=== PATIENT | male | born 1940 | race Caucasian/White ===

== ENCOUNTER → 2016-08-12 | Outpatient (CLI) | payer MEDICARE ==
[~2016-08-12] MED LIST: ASPIRIN 32325 MG/TAB PO; CIPRO500 M1 PO; DAILY VALUE1 EACH PO; ED NORCO 56 UDTAB/BO PO; FINASTERIDE5 MG PO; FLAGYL500 M1 PO; FLECAINIDE ACET50 MG PO; GOOD SENSE ASPI81 M1 PO; NIACIN1000 MG PO; NIACIN500 MG PO; OMEGA-3 EC SOF1 EACH PO; OMNICEF 300MG300 MG PO; PROSCAR PO; SIMVASTATIN20 MG PO; SUPER B COMPLEX1 TA2 PO; SUPER B-50 COM1 EACH PO; TOPCARE ASPIRIN81 MG PO; TOPROL XL 50MG50 MG PO; XARELTO20 MG PO; ZITHROMAX500 M2 PO; ZOCOR20 M1 PO; [UNRECOGNIZED DRUG - OTHER] PO
[2016-08-12 11:55] VITALS: BP 156/90
== END ==
LOC: AMSURD 11:50
DX: R00.0 Tachycardia, unspecified (principal)

== ENCOUNTER → 2016-08-13 | Outpatient (CLI) | payer MEDICARE ==
[2016-08-12 11:55] VITALS: BP 156/90
== END ==
LOC: RAD 11:54 → LAB 11:54
DX: I48.91 Unspecified atrial fibrillation (principal); E78.2 Mixed hyperlipidemia; I48.1 Persistent atrial fibrillation

== ENCOUNTER → 2016-09-04 | Outpatient (CLI) | payer MEDICARE ==
[2016-08-12 11:55] VITALS: BP 156/90
== END ==
LOC: CARDREHAB 09:38
DX: I48.0 Paroxysmal atrial fibrillation (principal); R06.00 Dyspnea, unspecified
CPT/HCPCS: A9500

== ENCOUNTER 2016-10-02 00:29 | Emergency (ER) | payer MEDICARE ==
[~2016-10-02] VITALS: Ht 195.6 cm; Wt 100.0 kg
[~2016-10-02 00:29] MED LIST changes: -CIPRO500 M1 PO; -FLAGYL500 M1 PO; -FLECAINIDE ACET50 MG PO; -NIACIN1000 MG PO; -OMEGA-3 EC SOF1 EACH PO; -PROSCAR PO; -SUPER B-50 COM1 EACH PO; -TOPROL XL 50MG50 MG PO; -XARELTO20 MG PO; -ZOCOR20 M1 PO
[2016-10-02] MEDS ORDERED: PROSCAR PO (00:59)
[2016-10-02] MEDS ORDERED: OMEGA-3 EC SOF1 EACH PO (01:00)
[2016-10-02] MEDS ORDERED: TOPROL XL 50MG50 MG PO (01:03)
[2016-10-02] MEDS ORDERED: FLECAINIDE ACET50 MG PO (01:03)
[2016-10-02] MEDS ORDERED: ZOCOR20 M1 PO (01:03)
[2016-10-02] MEDS ORDERED: XARELTO20 MG PO (01:04)
[2016-10-02] MEDS ORDERED: NIACIN1000 MG PO (01:04)
[2016-10-02] MEDS ORDERED: SUPER B-50 COM1 EACH PO (01:05)
[2016-10-02] MEDS ORDERED: CIPRO500 M1 PO (02:52)
[2016-10-02] MEDS ORDERED: FLAGYL500 M1 PO (02:52)
[2016-10-02 03:28] VITALS: BP 140/64
== END 2016-10-02 03:28 | disposition home or self-care (01) ==
LOC: ED 00:29
DX: K57.92 Diverticulitis of intestine, part unspecified, without perforation or abscess without bleeding (principal); N40.0 Benign prostatic hyperplasia without lower urinary tract symptoms; I48.91 Unspecified atrial fibrillation; Z79.01 Long term (current) use of anticoagulants; I10 Essential (primary) hypertension
CPT/HCPCS: J2270; J2405; J7030; Q9967

== ENCOUNTER → 2016-10-13 | Outpatient (CLI) | payer MEDICARE ==
[2016-10-02 03:28] VITALS: BP 140/64
[~2016-10-13] MED LIST changes: +CIPRO500 M1 PO; +FLAGYL500 M1 PO; +FLECAINIDE ACET50 MG PO; +NIACIN1000 MG PO; +OMEGA-3 EC SOF1 EACH PO; +PROSCAR PO; +SUPER B-50 COM1 EACH PO; +TOPROL XL 50MG50 MG PO; +XARELTO20 MG PO; +ZOCOR20 M1 PO
== END ==
LOC: LAB 09:27
DX: Z12.5 Encounter for screening for malignant neoplasm of prostate (principal)

== ENCOUNTER → 2016-10-16 | Outpatient (CLI) | payer MEDICARE ==
[~2016-10-16] VITALS: Ht 193 cm; Wt 100.0 kg
[2016-10-16 08:55] VITALS: BP 132/71
== END ==
LOC: AMSURD 08:38
DX: I48.91 Unspecified atrial fibrillation (principal)

== ENCOUNTER → 2017-01-18 | Outpatient (CLI) | payer MEDICARE ==
[2016-10-16 08:55] VITALS: BP 132/71
== END ==
LOC: LAB 07:32
DX: N30.01 Acute cystitis with hematuria (principal)

== ENCOUNTER → 2017-08-20 | Outpatient (CLI) | payer MEDICARE ==
[~2017-08-20] VITALS: Ht 193 cm; Wt 108.6 kg
[2017-08-20 10:31] VITALS: BP 129/77
== END ==
LOC: AMSURD 10:17
DX: I48.0 Paroxysmal atrial fibrillation (principal)

== ENCOUNTER → 2017-12-03 | Outpatient (CLI) | payer MEDICARE ==
[2017-08-20 10:31] VITALS: BP 129/77
[2017-12-03 07:21] LABS: HEMATOCRIT 40.7 % (42.0-52.0); HEMOGLOBIN 13.8 g/dL (13.5-18.0); MEAN CELL VOLUME 93 fl (78-100); MEAN CORPUSCULAR HEMOGLOBIN 32 pg (27-31); MEAN CORPUSCULAR HGB CONC 34 g/dL (33-37); MEAN PLATELET VOLUME 9.5 fl (7.4-10.4); PLATELET COUNT 197 K/mm3 (130-400); RED BLOOD COUNT 4.36 M/mm3 (4.20-5.60); RED CELL DISTRIBUTION WIDTH 12.7 % (11.5-14.5); WHITE BLOOD COUNT 4.1 K/mm3 (4.8-10.8)
[2017-12-03 07:39] LABS: ALBUMIN 3.7 g/dL (3.5-5.0); CALCIUM 8.9 mg/dL (8.4-10.2); POTASSIUM 4.2 mmol/L (3.6-5.0); TOTAL BILIRUBIN 0.5 mg/dL (0.2-1.3); TOTAL PROTEIN 6.7 g/dL (6.3-8.2)
[2017-12-03 08:34] LABS: BAND 1 % (0-10); LYMPHOCYTE 48 % (20-51); MONOCYTE 9 % (3-10); NEUTROPHILS 38 % (42-75)
[2017-12-03 08:42] LABS: URINE COLOR YELLOW
[2017-12-03 08:43] LABS: URINE APPEARANCE CLEAR; URINE BILIRUBIN NEGATIVE (NEGATIVE); URINE BLOOD NEGATIVE (NEGATIVE); URINE GLUCOSE NEGATIVE (NEGATIVE); URINE KETONE NEGATIVE (NEGATIVE); URINE LEUKOCYTE ESTERASE NEGATIVE (NEGATIVE); URINE NITRATE NEGATIVE (NEGATIVE); URINE PROTEIN(semi-quant) NEGATIVE (NEGATIVE); URINE UROBILINOGEN NORMAL (NORMAL); URINE WBC 0-1 /hpf (0-3)
== END ==
LOC: LAB 07:02
PROVIDERS: Physician Assistant
DX: Z00.00 Encounter for general adult medical examination without abnormal findings (principal); E03.9 Hypothyroidism, unspecified; N40.0 Benign prostatic hyperplasia without lower urinary tract symptoms; E78.2 Mixed hyperlipidemia

== ENCOUNTER → 2018-02-11 | Outpatient (CLI) | payer MEDICARE ==
[2017-08-20 10:31] VITALS: BP 129/77
== END ==
LOC: LAB 15:16
DX: L72.3 Sebaceous cyst (principal); B99.9 Unspecified infectious disease

== ENCOUNTER → 2018-03-18 | Outpatient (CLI) | payer MEDICARE ==
[~2018-03-18] VITALS: Ht 195.6 cm; Wt 104.5 kg
[~2018-03-18] MED LIST changes: +MEGARED OMEGA-1 EAC1 PO
[2018-03-18 09:30] VITALS: BP 121/74
== END ==
LOC: AMSURD 09:53
DX: I48.0 Paroxysmal atrial fibrillation (principal)

== ENCOUNTER → 2019-01-26 | Outpatient (CLI) | payer MEDICARE ==
[~2019-01-26] VITALS: Ht 195.6 cm; Wt 104.5 kg
[2019-01-26 13:45] VITALS: BP 94/55
== END ==
LOC: AMSURD 13:15
DX: I48.91 Unspecified atrial fibrillation (principal)

== ENCOUNTER 2019-07-04 06:48 | Emergency (ER) | payer MEDICARE ==
[~2019-07-04] VITALS: Ht 182.9 cm; Wt 109.8 kg
[~2019-07-04 06:48] MED LIST changes: +MASON NATURAL N1 CAP PO; -NIACIN1000 MG PO
[2019-07-04 08:23] LABS: ALBUMIN 3.8 g/dL (3.4-4.8); POTASSIUM 5.5 mmol/L (3.5-5.1)
[2019-07-04 08:24] LABS: CALCIUM 9.2 mg/dL (8.3-10.5)
[2019-07-04 08:25] LABS: TOTAL PROTEIN 6.4 g/dL (6.2-8.1)
[2019-07-04 08:27] LABS: TOTAL BILIRUBIN 0.5 mg/dL (0.2-1.2)
[2019-07-04 08:29] LABS: HEMATOCRIT 40.2 % (42.0-52.0); MEAN CELL VOLUME 89 fl (78-100); MEAN CORPUSCULAR HEMOGLOBIN 31 pg (27-31); MEAN CORPUSCULAR HGB CONC 35 g/dL (33-37); MEAN PLATELET VOLUME 9.1 fl (7.4-10.4); PLATELET COUNT 195 K/mm3 (130-400); RED BLOOD COUNT 4.54 M/mm3 (4.20-5.60); WHITE BLOOD COUNT 5.7 K/mm3 (4.8-10.8)
[2019-07-04 08:30] LABS: PH-URINE 6.5 (5.0 - 8.0); URINE APPEARANCE CLEAR; URINE BILIRUBIN NEGATIVE (NEGATIVE); URINE BLOOD NEGATIVE (NEGATIVE); URINE COLOR YELLOW; URINE GLUCOSE NEGATIVE (NEGATIVE); URINE KETONE SMALL (NEGATIVE); URINE LEUKOCYTE ESTERASE NEGATIVE (NEGATIVE); URINE NITRATE NEGATIVE (NEGATIVE); URINE PROTEIN(semi-quant) TRACE mg/dL (NEGATIVE); URINE UROBILINOGEN NORMAL (NORMAL)
[2019-07-04 08:31] LABS: URINE MUCUS PRESENT (NOT PRESENT); URINE WBC 0-1 /hpf (0-3)
[2019-07-04 08:37] LABS: LYMPHOCYTE 13 % (20-51); MONOCYTE 10 % (3-10); NEUTROPHILS 77 % (42-75)
[2019-07-04 12:13] LABS: POTASSIUM 4.7 mmol/L (3.5-5.1)
[2019-07-04 12:14] LABS: CALCIUM 8.3 mg/dL (8.3-10.5)
[2019-07-04] MEDS ORDERED: ONDANSETRON ODT8 MG PO (12:59)
[2019-07-04 13:17] VITALS: BP 172/86
== END 2019-07-04 13:17 | disposition home or self-care (01) ==
LOC: ED 06:48
PROVIDERS: Nurse Practitioner; Nurse Practitioner Primary Care
DX: R11.2 Nausea with vomiting, unspecified (principal); R10.84 Generalized abdominal pain; R19.5 Other fecal abnormalities; I48.91 Unspecified atrial fibrillation
CPT/HCPCS: J2270; J2405; J7030; Q9967

== ENCOUNTER 2019-07-06 08:47 | Emergency (ER) | payer MEDICARE ==
[~2019-07-06] VITALS: Wt 109.8 kg
[~2019-07-06 08:47] MED LIST changes: +ONDANSETRON ODT8 MG PO
[2019-07-06 10:13] LABS: ALBUMIN 3.6 g/dL (3.4-4.8); POTASSIUM 4.1 mmol/L (3.5-5.1)
[2019-07-06 10:14] LABS: CALCIUM 9.3 mg/dL (8.3-10.5)
[2019-07-06 10:17] LABS: TOTAL BILIRUBIN 1.1 mg/dL (0.2-1.2)
[2019-07-06 10:48] LABS: HEMATOCRIT 37.2 % (42.0-52.0); HEMOGLOBIN 13.5 g/dL (13.5-18.0); MEAN CELL VOLUME 86 fl (78-100); MEAN CORPUSCULAR HEMOGLOBIN 31 pg (27-31); MEAN CORPUSCULAR HGB CONC 36 g/dL (33-37); MEAN PLATELET VOLUME 9.9 fl (7.4-10.4); PLATELET COUNT 202 K/mm3 (130-400); RED BLOOD COUNT 4.33 M/mm3 (4.20-5.60); RED CELL DISTRIBUTION WIDTH 11.8 % (11.5-14.5); WHITE BLOOD COUNT 9.4 K/mm3 (4.8-10.8)
[2019-07-06 10:55] LABS: LYMPHOCYTE 11 % (20-51); MONOCYTE 11 % (3-10); NEUTROPHILS 78 % (42-75)
[2019-07-06 11:26] LABS: PH-URINE 7.5 (5.0 - 8.0); URINE APPEARANCE CLEAR; URINE BILIRUBIN NEGATIVE (NEGATIVE); URINE BLOOD NEGATIVE (NEGATIVE); URINE COLOR YELLOW; URINE GLUCOSE NEGATIVE (NEGATIVE); URINE KETONE 1+ (NEGATIVE); URINE LEUKOCYTE ESTERASE NEGATIVE (NEGATIVE); URINE MUCUS PRESENT (NOT PRESENT); URINE NITRATE NEGATIVE (NEGATIVE); URINE PROTEIN(semi-quant) NEGATIVE (NEGATIVE); URINE UROBILINOGEN NORMAL (NORMAL)
[2019-07-06 13:16] VITALS: BP 169/92
== END 2019-07-06 12:50 | disposition short-term general hospital (02) ==
LOC: ED 08:47
PROVIDERS: Nurse Practitioner
DX: E87.1 Hypo-osmolality and hyponatremia (principal); R11.2 Nausea with vomiting, unspecified; I48.91 Unspecified atrial fibrillation
CPT/HCPCS: J2405; J7030

== ENCOUNTER → 2020-09-04 | Outpatient (CLI) | payer MEDICARE ==
[2020-09-04 10:31] LABS: HEMATOCRIT 42.2 % (42.0-52.0); HEMOGLOBIN 14.3 g/dL (13.5-18.0); MEAN CELL VOLUME 92 fl (78-100); MEAN CORPUSCULAR HEMOGLOBIN 31 pg (27-31); MEAN CORPUSCULAR HGB CONC 34 g/dL (33-37); MEAN PLATELET VOLUME 8.6 fl (7.4-10.4); PLATELET COUNT 175 K/mm3 (130-400); RED BLOOD COUNT 4.57 M/mm3 (4.20-5.60); RED CELL DISTRIBUTION WIDTH 12.2 % (11.5-14.5); WHITE BLOOD COUNT 3.3 K/mm3 (4.8-10.8)
[2020-09-04 10:40] LABS: ALBUMIN 3.9 g/dL (3.4-4.8); POTASSIUM 4.9 mmol/L (3.5-5.1)
[2020-09-04 10:41] LABS: CALCIUM 8.9 mg/dL (8.3-10.5)
[2020-09-04 10:42] LABS: TOTAL PROTEIN 6.7 g/dL (6.2-8.1)
[2020-09-04 10:44] LABS: TOTAL BILIRUBIN 0.4 mg/dL (0.2-1.2)
[2020-09-04 11:31] LABS: LYMPHOCYTE 24 % (20-51); MONOCYTE 22 % (3-10); NEUTROPHILS 53 % (42-75)
== END ==
LOC: RAD 10:16 → LAB 10:16
PROVIDERS: Physician Assistant
DX: R05 Cough (principal); E87.1 Hypo-osmolality and hyponatremia; R53.83 Other fatigue; Z98.890 Other specified postprocedural states

== ENCOUNTER → 2020-09-11 | Outpatient (CLI) | payer MEDICARE ==
[2020-09-11 12:28] LABS: POTASSIUM 5.4 mmol/L (3.5-5.1)
[2020-09-11 12:29] LABS: CALCIUM 9.3 mg/dL (8.3-10.5)
[2020-09-11 12:30] LABS: TOTAL PROTEIN 6.7 g/dL (6.2-8.1)
== END ==
LOC: LAB 11:54
PROVIDERS: Physician Assistant
DX: E87.5 Hyperkalemia (principal)

== ENCOUNTER → 2020-09-23 | Outpatient (CLI) | payer MEDICARE ==
[2020-09-23 07:51] LABS: POTASSIUM 4.4 mmol/L (3.5-5.1)
[2020-09-23 07:52] LABS: CALCIUM 8.7 mg/dL (8.3-10.5)
== END ==
LOC: LAB 07:31
PROVIDERS: Physician Assistant
DX: E87.1 Hypo-osmolality and hyponatremia (principal)

== ENCOUNTER → 2020-10-18 | Outpatient (CLI) | payer MEDICARE | LOC: AMSURD 11:32 | DX: I44.0 Atrioventricular block, first degree (principal) ==

== ENCOUNTER → 2020-10-22 | Outpatient (CLI) | payer MEDICARE ==
[2020-10-22 08:18] LABS: CALCIUM 8.7 mg/dL (8.3-10.5)
== END ==
LOC: LAB 07:28
PROVIDERS: Physician Assistant
DX: E87.1 Hypo-osmolality and hyponatremia (principal)

== ENCOUNTER → 2021-03-25 | Outpatient (CLI) | payer MEDICARE ==
--- NOTE | 2021-03-25 09:03 | NUR ---
EKG FAXED TO DR MIRANDA PER ORDER.
== END ==
LOC: AMSURD 08:23
DX: I48.0 Paroxysmal atrial fibrillation (principal); Z79.899 Other long term (current) drug therapy

== ENCOUNTER → 2021-06-25 | Outpatient (CLI) | payer MEDICARE ==
[2021-06-25 08:01] LABS: POTASSIUM 4.4 mmol/L (3.5-5.1)
[2021-06-25 08:02] LABS: ALBUMIN 3.8 g/dL (3.4-4.8)
[2021-06-25 08:03] LABS: CALCIUM 9.1 mg/dL (8.3-10.5)
[2021-06-25 08:04] LABS: TOTAL PROTEIN 6.6 g/dL (6.2-8.1)
[2021-06-25 08:06] LABS: TOTAL BILIRUBIN 0.6 mg/dL (0.2-1.2)
== END ==
LOC: LAB 07:25
PROVIDERS: Physician Assistant
DX: E87.1 Hypo-osmolality and hyponatremia (principal); E03.4 Atrophy of thyroid (acquired); E78.2 Mixed hyperlipidemia

== ENCOUNTER → 2021-07-18 | Outpatient (CLI) | payer MEDICARE | LOC: AMSURD 09:44 | DX: Z79.899 Other long term (current) drug therapy (principal) ==

== ENCOUNTER → 2021-10-29 | Outpatient (CLI) | payer MEDICARE | LOC: AMSURD 07:52 | DX: Z79.899 Other long term (current) drug therapy (principal) ==

== ENCOUNTER → 2021-12-23 | Outpatient (CLI) | payer MEDICARE ==
[2021-12-23 09:50] LABS: BASO # 0.03 K/mm3 (0.02-0.10); EOS # 0.11 K/mm3 (0.04-0.40); EOS % 2.5 % (0.0-4.0); HEMATOCRIT 40.7 % (42.0-52.0); HEMOGLOBIN 13.4 g/dL (13.5-18.0); LYMPH# 0.95 K/mm3 (1.50-4.00); MEAN CELL VOLUME 97 fl (78-100); MEAN CORPUSCULAR HEMOGLOBIN 32 pg (27-31); MEAN CORPUSCULAR HGB CONC 33 g/dL (33-37); MEAN PLATELET VOLUME 9.2 fl (7.4-10.4); NEU # 2.75 K/mm3 (1.40-6.50); PLATELET COUNT 180 K/mm3 (130-400); RED BLOOD COUNT 4.21 M/mm3 (4.20-5.60); RED CELL DISTRIBUTION WIDTH 12.5 % (11.5-14.5); WHITE BLOOD COUNT 4.4 K/mm3 (4.8-10.8)
[2021-12-23 10:00] LABS: ALBUMIN 3.7 g/dL (3.4-4.8); POTASSIUM 4.6 mmol/L (3.5-5.1)
[2021-12-23 10:01] LABS: CALCIUM 8.9 mg/dL (8.3-10.5)
[2021-12-23 10:02] LABS: TOTAL PROTEIN 6.4 g/dL (6.2-8.1)
[2021-12-23 10:04] LABS: TOTAL BILIRUBIN 0.8 mg/dL (0.2-1.2)
== END ==
LOC: LAB 09:30
PROVIDERS: Physician Assistant
DX: Z00.00 Encounter for general adult medical examination without abnormal findings (principal); Z12.5 Encounter for screening for malignant neoplasm of prostate; E78.2 Mixed hyperlipidemia; E03.4 Atrophy of thyroid (acquired); I48.91 Unspecified atrial fibrillation; I65.29 Occlusion and stenosis of unspecified carotid artery; E87.1 Hypo-osmolality and hyponatremia

== ENCOUNTER → 2022-02-19 | Outpatient (CLI) | payer MEDICARE | LOC: LAB 15:26 | DX: U07.1 COVID-19 (principal); B34.9 Viral infection, unspecified ==

== ENCOUNTER → 2022-02-20 | Outpatient (CLI) | payer MEDICARE ==
[~2022-02-20] VITALS: Ht 193 cm; Wt 109.8 kg
[2022-02-20 17:28] VITALS: BP 147/89
== END ==
LOC: AMSURD 16:58
DX: U07.1 COVID-19 (principal)

== ENCOUNTER → 2023-05-17 | Day surgery (SDC) | payer MEDICARE | END | disposition home or self-care (01) | LOC: MSO 08:05 | DX: Z12.11 Encounter for screening for malignant neoplasm of colon (principal); D12.3 Benign neoplasm of transverse colon; K57.30 Diverticulosis of large intestine without perforation or abscess without bleeding; F17.210 Nicotine dependence, cigarettes, uncomplicated | CPT/HCPCS: 00811; J2704; J7120 ==

== ENCOUNTER → 2023-09-29 | Outpatient (CLI) | payer MEDICARE ==
[2023-09-29 11:07] LABS: BASO # 0.02 K/mm3 (0.02-0.10); EOS # 0.09 K/mm3 (0.04-0.40); EOS % 1.9 % (0.0-4.0); HEMATOCRIT 43.1 % (42.0-52.0); HEMOGLOBIN 13.9 g/dL (13.5-18.0); LYMPH# 1.24 K/mm3 (1.50-4.00); MEAN CELL VOLUME 97 fl (78-100); MEAN CORPUSCULAR HEMOGLOBIN 31 pg (27-31); MEAN CORPUSCULAR HGB CONC 32 g/dL (33-37); MEAN PLATELET VOLUME 9.6 fl (7.4-10.4); MONO # 0.51 K/mm3 (0.20-0.80); NEU # 2.93 K/mm3 (1.40-6.50); PLATELET COUNT 154 K/mm3 (130-400); RED BLOOD COUNT 4.43 M/mm3 (4.20-5.60); RED CELL DISTRIBUTION WIDTH 12.9 % (11.5-14.5); WHITE BLOOD COUNT 4.8 K/mm3 (4.8-10.8)
[2023-09-29 11:11] LABS: ALBUMIN 3.6 g/dL (3.4-4.8)
[2023-09-29 11:12] LABS: CALCIUM 9.2 mg/dL (8.3-10.5)
[2023-09-29 11:14] LABS: TOTAL PROTEIN 6.2 g/dL (6.2-8.1)
[2023-09-29 11:15] LABS: TOTAL BILIRUBIN 0.6 mg/dL (0.2-1.2)
[2023-09-29 11:31] LABS: PH-URINE 5.5 (5.0 - 8.0); URINE APPEARANCE CLEAR (CLEAR); URINE BILIRUBIN NEGATIVE (NEGATIVE); URINE BLOOD NEGATIVE (NEGATIVE); URINE COLOR YELLOW (YELLOW); URINE GLUCOSE NEGATIVE (NEGATIVE); URINE KETONE NEGATIVE (NEGATIVE); URINE LEUKOCYTE ESTERASE NEGATIVE (NEGATIVE); URINE NITRATE NEGATIVE (NEGATIVE); URINE PROTEIN(semi-quant) NEGATIVE (NEGATIVE); URINE WBC 0-1 /hpf (0-3)
[2023-09-29 11:32] LABS: URINE MUCUS PRESENT (NOT PRESENT)
[2023-09-29 11:42] LABS: PARTIAL THROMBOPLASTIN TIME 25.3 SECONDS (21.0-32.0); PROTHROMBIN TIME 11.6 SECONDS (9.0-12.0)
== END ==
LOC: LAB 10:44
PROVIDERS: Physician Assistant
DX: Z01.818 Encounter for other preprocedural examination (principal)

== ENCOUNTER → 2023-10-07 | Outpatient (CLI) | payer MEDICARE ==
[2023-10-07 07:44] LABS: CALCIUM 9.3 mg/dL (8.3-10.5)
== END ==
LOC: LAB 07:26
PROVIDERS: Physician Assistant
DX: E87.5 Hyperkalemia (principal)

== ENCOUNTER → 2024-03-15 | Outpatient (CLI) | payer MEDICARE ==
[2024-03-15 08:37] LABS: BASO # 0.04 K/mm3 (0.02-0.10); HEMATOCRIT 43.5 % (42.0-52.0); LYMPH# 1.23 K/mm3 (1.50-4.00); MEAN CELL VOLUME 96 fl (78-100); MEAN CORPUSCULAR HEMOGLOBIN 31 pg (27-31); MEAN CORPUSCULAR HGB CONC 32 g/dL (33-37); MEAN PLATELET VOLUME 9.3 fl (7.4-10.4); MONO # 0.66 K/mm3 (0.20-0.80); NEU # 2.95 K/mm3 (1.40-6.50); PLATELET COUNT 158 K/mm3 (130-400); RED BLOOD COUNT 4.54 M/mm3 (4.20-5.60); RED CELL DISTRIBUTION WIDTH 13.3 % (11.5-14.5)
[2024-03-15 09:01] LABS: ALBUMIN 3.9 g/dL (3.4-4.8)
[2024-03-15 09:02] LABS: CALCIUM 9.5 mg/dL (8.3-10.5)
[2024-03-15 09:03] LABS: TOTAL PROTEIN 6.6 g/dL (6.2-8.1)
[2024-03-15 09:05] LABS: TOTAL BILIRUBIN 0.9 mg/dL (0.2-1.2)
== END ==
LOC: LAB 08:13
PROVIDERS: Physician Assistant
DX: K90.9 Intestinal malabsorption, unspecified (principal); E78.2 Mixed hyperlipidemia; E03.4 Atrophy of thyroid (acquired); E87.1 Hypo-osmolality and hyponatremia

== ENCOUNTER → 2024-05-05 | Outpatient (CLI) | payer MEDICARE | LOC: RAD 14:44 | DX: I77.810 Thoracic aortic ectasia (principal) ==